=== PATIENT | female | born 1995 | race African-American/Black ===

== ENCOUNTER 2022-10-01 07:31 | Emergency (ER) | payer MEDICAID, SELFPAY ==
--- NOTE | 2022-10-01 07:40 | ED.PSYCH ---
HPI - Psych General Chief Complaint: Psychiatric Symptoms Stated Complaint: SI History of Present Illness HPI Narrative: Patient is a 27-year-old female in police custody presenting with SI. [place] spitting out and attacking other people. Police were called and charged her with battery. Patient stated that she then wanted to kill herself because of her anxiety. She was brought in for evaluation. On my evaluation, the patient denies suicidal ideation or homicidal ideation. She states that she is fine and she does not want to be here. She did not want to go to skilled nursing. Denies further complaints. Review of Systems Review of Systems: All systems reviewed & are unremarkable except as noted in HPI and below Exam Narrative: GENERAL: Nontoxic, no acute distress, intermittently hostile but redirectable HEAD: Normocephalic, atraumatic. EYES: PERRLA and EOMI. ENT: Nares clear, no rhinorrhea or epistaxis NECK: Supple. CHEST: No respiratory distress. HEART: Regular rate and rhythm ABDOMEN: nondistended EXTREMITIES: Normal range of motion. No edema. SKIN: Warm, dry, no rash. NEURO: No focal deficits. Alert and oriented x3. PSYCH: Denies SI or HI, intermittently hostile but redirectable MDM - Psych MDM Narrative Medical decision making narrative: Patient is a 27-year-old female presenting with statements of wanting to hurt herself. Patient is nontoxic, in no acute distress. Patient was charged with battery by PD prior to arrival. She made statements that she wanted to hurt herself following these charges. On my evaluation, she denies SI or HI. States that she feels fine and she would like to go. She is declining labs or anything further at this time. She is A&O x4, has decision-making capacity, and is denying any SI or HI. Feel she is safe for discharge. Discharged in stable condition ambulating steadily. Differential Diagnosis Differential diagnosis: Likely suicidal ideation, depression, acute anxiety and other Critical Care Time Critical Care Time Critical Care Time: No Discharge Plan Discharge Clinical Impression: Anxiety Patient Disposition: Home, Self-Care Condition: Stable Instructions: Antibiotic Form, Anxiety (ED) Additional Instructions: We recommend following up with PCP within 1-3 days. If your symptoms worsen, you develop chest pain, shortness of breath, numbness or weakness, vomiting, fevers >100.4F, or other concerning symptoms arise, please return to the ER.
[2022-10-01 07:57] VITALS: RESP 16
--- NOTE | 2022-10-01 07:57 | PC.NURSE ---
pt walked out ambulance bay doors, accompanied by PD. er md asked pt if she was having suicidal or homocidal ideation to which the patient adamently denied.
== END 2022-10-01 07:57 | disposition home or self-care (01) ==
LOC: ANHED 08:07
PROVIDERS: Emergency Provider Emergency Medicine
DX: F41.9 Anxiety disorder, unspecified (principal)
CPT/HCPCS: 99281